=== PATIENT | female | born 1985 | race Caucasian/White ===

== ENCOUNTER 2021-07-05 12:04 | Emergency (ER) | payer OTHER, SELFPAY ==
[2021-07-05 13:18] VITALS: BP 118/63; PULSE 68; RESP 18; TEMP 36.4; O2SAT 99; BMI 28.0
[2021-07-05 13:22] VITALS: BP 118/63; PULSE 68; RESP 18; TEMP 36.4
--- NOTE | 2021-07-05 13:46 | HMH.EDUTC ---
[facility] [place] Clinical Impression: Exposure to COVID-19 virus Disposition: Home, Self-Care Condition on Discharge: Good Instructions: DI for COVID-19 (Suspected or Confirmed ), Preventing the Spread of Coronavirus Discharge Instructions Additional Instructions: Drink plenty of fluids. Take tylenol for pain or fever. Return if you begin to have difficulty breathing. Follow up with your regular doctor. GO TO THE ER FOR ANY WORSENING SYMPTOMS Quarantine until you know the results of your covid-19 test. If it is positive, the health department should call you and give you further instructions about your length of Quarantine and other things. Notify your school or workplace of your results and follow their instructions regarding return to work/school. Referrals: Surekha Gregg PA [Primary Care Provider] - Time of Disposition: 13:47 Medical Decision Making - Medical Records Medical records reviewed: No: I reviewed the patient's medical records. - Jose Juan Inquiry Pt receiving controlled substance: No Vital Signs: 07/05/21 13:18 07/05/21 13:22 Temperature 97.6 F 97.6 F Temperature Source Temporal Artery Scan Temporal Artery Scan Pulse Rate 68 Pulse Rate [Left] 68 Respiratory Rate 18 18 Blood Pressure 118/63 Blood Pressure [Right Arm] 118/63 Blood Pressure Mean [Right Arm] 81 02 Sat by Pulse Oximetry 99 Orders (Tests/Meds): ORDERS Category Date Time Status Covid-19 Nasal PCR ([facility]) Routine Lab 07/05/21 12:55 Received [facility] [place] HPI - General Stated complaint: covid expo Time Seen by Provider: 07/05/21 13:30 Mode of Arrival: Ambulatory Source of Information: Patient Limitations: No Limitations HEENT Symptoms (Recalled from RN notes): No Resp Symptoms (Recalled from RN notes): No Skin Symptoms (Recalled from RN notes): No MS Symptoms (Recalled from RN notes): No Functional Status (Recalled from RN notes): na - History of Present Illness Provider Complaint: She was exposed to covid-19 around 4 days ago. She denies any symptoms. - Related Data Allergies Allergy/AdvReac Type Severity Reaction Status Date / Time latex Allergy Verified 07/05/21 13:22 - Worker's Comp Is this a Worker's Comp case?: No [facility] History - Hepatitis A Screen Drug use history?: No High risk sexual behaviors?: No History of sexually transmitted infection?: No Currently employed?: No Childcare worker?: No Do you have indoor plumbing?: Yes Do you have electricity?: Yes Attestation statement:: This patient has been screened for Hepatitis A risk factors. I have reviewed the patient's past medical history: Yes ROS Obtained: Yes All systems reviewed & no additional complaints - Constitutional Constitutional: Reports system reviewed and no additional complaints, except as docu - Eyes Eyes: Reports system reviewed and no additional complaints, except as docu - ENT Ears, Nose, Mouth, and Throat: Reports system reviewed and no additional complaints, except as docu - Cardiovascular Cardiovascular: Reports system reviewed and no additional complaints, except as docu - Respiratory Respiratory: Reports system reviewed and no additional complaints, except as docu Physical Exam - General General appearance: alert, in no apparent distress - Head Head exam: atraumatic, normocephalic, normal inspection - Eye Eye exam: Present: normal appearance, PERRL, EOMI - ENT ENT exam: Present: normal exam, normal oropharynx, mucous membranes moist, TM's normal bilaterally, normal external ear exam - Neck Neck exam: Present: normal inspection, full ROM, trachea midline. Absent: meningismus, lymphadenopathy - Chest Chest inspection: Present: normal inspection, symmetric chest wall rise. Absent: tenderness - Respiratory Respiratory exam: Present: normal lung sounds bilaterally. Absent: respiratory distress - Cardiovascular Cardiovascular exam: Present: regular rate, normal rhythm
== END 2021-07-05 14:04 | disposition home or self-care (01) ==
PROVIDERS: Emergency Provider Nurse Practitioner Family; PCP Nurse Practitioner Family
DX: Z20.822 Contact with and (suspected) exposure to COVID-19 (principal)
CPT/HCPCS: 99202; C9803; G0463; U0003; U0005

== ENCOUNTER 2021-09-26 10:35 | Emergency (ER) | payer OTHER, SELFPAY ==
[2021-09-26] VITALS (7 sets, daily range): BP systolic 101–139; BP diastolic 67–90; PULSE 61–80; RESP 16–18; TEMP 36.9; O2SAT 96–99; BMI 30.7
[2021-09-26 11:01] LABS: Microscopic, Urine URINE MICROSCOPIC (MICROSCOPIC)
[2021-09-26 11:11] LABS: Chloride 103 mmol/L (98-107); Potassium 4.1 mmoL/L (3.5-5.1); Sodium 137 mmol/L (136-145)
[2021-09-26 11:13] LABS: Alanine Aminotransferase 39 U/L (12-78); Aspartate Amino Transferase 37 U/L (14-36); Blood Urea Nitrogen 7 mg/dl (7-17); Creatinine Clearance Estimated 180 mL/min (50-200); Estimated Glomerular Filt Rate 114 ml/min (>60); GFR (African American) 138 ML/MIN (>60)
--- NOTE | 2021-09-26 11:13 | HMH.EDABDPAI ---
ED Disposition Clinical Impression: Gastritis Qualifiers: Gastritis type: unspecified gastritis Chronicity: acute Gastritis bleeding: without bleeding Qualified Code(s): K29.00 - Acute gastritis without bleeding Disposition: Home, Self-Care Condition on Discharge: Good Instructions: DI for Gastritis Prescriptions: Ondansetron [Zofran 4mg ODT] 4 mg PO BIDP PRN #10 tab PRN Reason: Nausea Prescription Printed Referrals: Zoraida Goff APRN [Primary Care Provider] - - Critical Care Critical Care Time: No Attestation: On 09/26/21, the high probability of a clinically significant, sudden or life threatening deterioration of the following system(s) required my full and direct attention, intervention and personal management. The time I documented below is in addition to time spent performing reported procedures but includes the following listed in this critical care notation. Medical Decision Making - Medical Records Medical records reviewed: Yes: I reviewed the patient's medical records. - Jose Juan Inquiry Pt receiving controlled substance: No Vital Signs: 09/26/21 10:46 Temperature 98.4 F Temperature Source Oral Pulse Rate [Right Radial] 61 Respiratory Rate 18 Blood Pressure [Right Arm] 111/67 Blood Pressure Mean [Right Arm] 81 Blood Pressure Source [Right Arm] Automatic Cuff Blood Pressure Position [Right Arm] Sitting 02 Sat by Pulse Oximetry 96 Oxygen Delivery Method Room Air - Lab Data Lab Results 09/26/21 10:53: Urine Color Yellow, Urine Appearance Clear, Urine pH 8.0, Ur Specific Paul 1.015, Urine Protein 1+, Urine Glucose (UA) Negative, Urine Ketones Negative, Urine Blood 1+, Urine Nitrate Negative, Urine Bilirubin Negative, Urine Urobilinogen 1.0, Ur Leukocyte Esterase 1+ A, Urine RBC 3-5, Urine WBC 3-5, Ur Squamous Epith Cells 3-5 09/26/21 10:53: Urine HCG, Qual Negative 09/26/21 10:53: Sodium 137, Potassium 4.1, Chloride 103, Carbon Dioxide 25, Anion Gap 13.1, BUN 7, Creatinine 0.60, Estimated Creat Clear 180, Estimated GFR 114, Est GFR ( Amer) 138, Glucose 137 H, Calcium 9.5, Total Bilirubin 0.3, AST 37 H, ALT 39, Alkaline Phosphatase 121, Total Protein 7.5, Albumin 4.4, Globulin 3.1, Albumin/Globulin Ratio 1.4, Lipase 35 09/26/21 11:37: WBC 15.0 H, RBC 4.71, Hgb 14.1, Hct 40.5, MCV 86.1, MCH 29.9, MCHC 34.7, RDW 13.5, Plt Count 318, MPV 8.4, Neut % (Auto) 79.9, Lymph % (Auto) 10.3, [place] % (Auto) 7.6, Eos % (Auto) 1.1, Baso % (Auto) 1.1, Neut # (Auto) 12.0 H, Lymph # (Auto) 1.5, [place] # (Auto) 1.1 H, Eos # (Auto) 0.2, Baso # (Auto) 0.2, Total Counted 100, Neutrophils % (Manual) 70, Lymphocytes % (Manual) 21, Monocytes % (Manual) 8, Eosinophils % (Manual) 1, Platelet Estimate Normal, RBC Morphology Normal Result diagrams: 09/26/21 11:37 09/26/21 10:53 Orders (Tests/Meds): ED MEDICATIONS Discontinued Medications Generic Name Dose Route Start Last Admin Trade Name Freq PRN Reason Stop Dose Admin Diphenhydramine HCl 25 mg 09/26/21 10:53 09/26/21 11:08 Diphenhydramine 50mg/Ml Vial IV 09/26/21 10:54 25 mg ONCE ONE Administration Sodium Chloride 1,000 mls @ 999 mls/hr 09/26/21 11:00 09/26/21 11:08 Sod Chlor 0.9% 1000ml Bag IV 09/26/21 12:00 999 mls/hr .[id number] YANN Administration Ketorolac Tromethamine 30 mg 09/26/21 10:53 09/26/21 11:08 Ketorolac 30mg/Ml Vial IV 09/26/21 10:54 30 mg ONCE ONE Administration ORDERS Category Date Time Status Urine Culture Stat Micro 09/26/21 10:53 Received - Reevaluation(s) Time: 13:00 Reevaluation #1: On reevaluation, the patient is feeling better. Repeat abdominal exam is benign. There is no evidence of acute abdomen. Patient is tolerating oral intake without any significant difficulty. Patient needs repeat abdominal examination within 48 hours. She was given strict return precautions. Verbalized understanding. Medical Decision Narrative: 36-year-old female presented to the emergency depa
[2021-09-26 11:14] LABS: Albumin Level 4.4 g/dl (3.5-5.0); Albumin/Globulin Ratio 1.4 (1.1-1.8); Alkaline Phosphatase 121 U/L (38-126); Anion Gap 13.1 mEq/L (5-15); Bilirubin,Total 0.3 mg/dl (0.2-1.3); Calcium 9.5 mg/dl (8.4-10.2); Carbon Dioxide 25 mmol/L (22.0-30.0); Globulin 3.1 g/dL (1.3-3.2); Glucose 137 mg/dl (74-100); Lipase 35 U/L (23-300); Total Protein,Serum 7.5 g/dl (6.3-8.2)
[2021-09-26 11:44] LABS: Appearance,Urine CLEAR (Clear); Bilirubin,Urine Negative (Negative); Blood, Urine 1+ (Negative); Color,Urine YELLOW (Yellow); Glucose,Urine (UA) Negative (Negative); Ketones,Urine Negative (Negative); Leukocyte Esterase,Urine 1+ (Negative); Nitrate,Urine Negative (Negative); Protein,Urine 1+ (Negative); Specific Gravity, Urine 1.015 (1.005-1.030)
[2021-09-26 11:53] LABS: Urine Pregnancy, HCG Qual. Negative (Negative)
[2021-09-26 12:04] LABS: Basophils # 0.2 K/mm3 (0-0.2); Basophils % 1.1 % (0.1-2.0); Eosinophils # 0.2 K/mm3 (0.0-0.4); Eosinophils % 1.1 % (0.1-12.0); Hematocrit 40.5 % (37.0-47.0); Hemoglobin 14.1 g/dL (12.2-16.2); Lymphocytes # 1.5 K/mm3 (0.7-4.5); Lymphocytes % 10.3 % (10-50); Mean Corpuscular HGB Conc 34.7 g/dL (31.8-35.4); Mean Corpuscular Hemoglobin 29.9 pg (27.0-31.2); Mean Corpuscular Volume 86.1 fl (81-99); Mean Platelet Volume 8.4 fl (7.4-10.4); Monocytes # 1.1 K/mm3 (0.1-1.0); Monocytes % 7.6 % (1.7-9.3); Neutrophils % 79.9 % (37.0-80.0); Platelet Count 318 K/mm3 (142-424); Red Blood Count 4.71 M/mm3 (4.20-5.40); Red Cell Distribution Width 13.5 % (11.5-17.5)
[2021-09-26 12:07] LABS: MANUAL DIFFERENTIAL MANUAL DIFFERENTIAL (MANUAL DIFF)
[2021-09-26 12:28] LABS: Eosinophils % 1 % (0-3); Lymphocytes % 21 % (10-50); Monocytes % 8 % (2-9); Neutrophils % 70 % (42-76); Platelet Estimate Normal; RBC Morphology Normal; Total Cells Counted 100
== END 2021-09-26 13:57 | disposition home or self-care (01) ==
PROVIDERS: Emergency Provider Emergency Medicine; PCP Nurse Practitioner Family
DX: K29.00 Acute gastritis without bleeding (principal)
CPT/HCPCS: 80053; 81001; 81025; 83690; 85007; 85025; 87086; 87088; 87186; 96365; 96375; 99283

== ENCOUNTER → 2021-10-15 12:54 | Outpatient (CLI) | payer OTHER, SELFPAY | PROVIDERS: Visit Provider Nurse Practitioner | DX: U07.1 COVID-19 (principal) | CPT/HCPCS: C9803; U0003; U0005 ==

== ENCOUNTER 2024-10-02 15:32 | Emergency (ER) | payer OTHER, SELFPAY ==
[2024-10-02 15:34] VITALS: BP 113/76; PULSE 83; RESP 20; TEMP 36.6; O2SAT 96; BMI 29.0
--- NOTE | 2024-10-02 15:50 | PC.NURSE ---
DR GARNICA AT BEDSIDE
--- NOTE | 2024-10-02 15:55 | XR_ITS ---
PROCEDURE INFORMATION: Exam: XR Chest Exam date and time: 10/02/2024 3:58 PM Age: 39 years old Clinical indication: Cough and dyspnea and fever and wheezing; Additional info: L posterior wheezes, productive cough TECHNIQUE: Imaging protocol: Radiologic exam of the chest. Views: 1 view. COMPARISON: No relevant prior studies available. FINDINGS: Lungs: No evidence of acute pulmonary disease or infiltrates Pleural spaces: No large effusion or pneumothorax. Heart/Mediastinum: No evidence of mediastinal widening or cardiac silhouette enlargement; the mediastinum and heart appear within normal limits for contour and size. Bones/joints: No evidence of acute osseous abnormalities within the visualized portions of the thoracic spine and ribs. Osseous structures appear appropriate for patient age. IMPRESSION: No dense parenchymal consolidation, pleural effusion, or pneumothorax.
[2024-10-02] MEDS: IPRATROPIUM/ALBUTEROL 3 ML NEB 9 ML IH (16:04)
[2024-10-02] MEDS: DOXYCYCLINE HYCL 100 MG TABLET PO (16:07)
[2024-10-02] MEDS: predniSONE 20MG TAB 40 MG PO (16:08)
--- NOTE | 2024-10-02 16:13 | ED_ITS ---
Discharge Plan Disposition Patient Disposition: Home, Self-Care Prescriptions Prescriptions: New prednisone 20 mg tablet 40 mg PO DAILY 5 Days Qty: 10 0RF doxycycline monohydrate 100 mg capsule 100 mg PO BID 5 Days Qty: 10 0RF No Action ondansetron 4 MG tablet,disintegrating 4 mg PO BIDP PRN (Reason: Nausea) Qty: 10 0RF Referrals Follow up/Referrals: Zoraida Goff APRN [Primary Care Provider] - See instructions Activity Restrictions/Add. Instructions Additional Instructions/Restrictions: Call your family doctor to establish care for this visit to the emergency department and schedule follow-up within 48 hours to ensure improvement. If you have any worsening of your condition or any other concerning signs or symptoms, return to the emergency department or your primary care doctor for further evaluation. Prednisone in the morning after waking up, doxycycline twice daily for 5 days. Clinical Impressions Clinical Impression: Bronchitis, Acute exacerbation of chronic obstructive pulmonary disease Print Language Print Language: Icelandic Discharge ED Provider: Yuniel Mckeon General Adult HPI General Chief complaint: Upper Respiratory Infection Stated complaint: Body aches,cold & hot,nausea,runny nose Time Seen by Provider: 10/02/24 15:44 Mode of Arrival: Ambulatory Source of Information: Patient Limitations: No Limitations Description of Symptoms (Recalled from ER Triage Doc. by RN): pt is here for being sick 3 days with cough, congestion, chills History of Present Illness HPI narrative: Please note that above description of symptoms, in this electronic medical record under categorization of recalled from ER triage doctor by RN are reflective of an initial nursing assessment, however, is not reflective of my full history and physical exam that was personally taken and clarified. Consequentially, this preceding description of symptoms, which may include the patient's categorized chief complaint in the EMR, do not reflect my personal cl inical impression, and the ultimate description of history of present illness and patient stated complaints should be deferred to this section of the note. Unless stated otherwise or congruent with this section of the note, additional signs, symptoms, or incongruence should be interpreted as inaccurate with my clinical impression. Related Data Previous Rx's ?Medication ?Instructions ?Recorded ondansetron 4 mg disintegrating 4 mg PO BIDP PRN Nausea #10 tabs 09/26/21 tablet doxycycline monohydrate 100 mg 100 mg PO BID 5 days #10 caps 10/02/24 capsule prednisone 20 mg tablet 40 mg (2 x 20 mg) PO DAILY 5 days 10/02/24 #10 tabs Allergies Allergy/AdvReac Type Severity Reaction Status Date / Time latex Allergy Verified 07/05/21 13:22 [facility] Disclaimer: The information contained in this section may have been updated after the patient was seen, as this information can be updated by other users. Social History Smoking Status: Current every day smoker alcohol intake: current current occupational status: other Travel in the last 8 weeks: None Other Medical History Have you received the Flu Vaccine for this season: No Have you received the Pneumonia Vaccine: No ROS Obtained: Yes All systems reviewed & no additional complaints except as documented Physical Exam General General appearance: alert Head Head exam: atraumatic and normocephalic Eye Eye exam: Present normal appearance, PERRL and EOMI Neck Neck exam: Present normal inspection, full ROM and trachea midline Respiratory Respiratory exam: Present wheezes (Posteriorly on inspiration on left lung barrios. Intermittently coughing); Absent respiratory distress, stridor, accessory muscle use or prolonged expiratory phase Cardiovascular Cardiovascular exam: Present other (Pulses equal symmetric in upper and lower extremities) Abdominal Exam Abdominal exam: Present soft; Absent distention, tenderness or pulsatile mass Extremities Exam Extremities exam: Absent edema Neurological Exam Neurological exam: Present alert, oriented X3 and CN II-XII intact; Absent motor sensory deficit Skin Skin exam: Present warm and dry; Absent diaphoresis or erythema Medical Decision Making Medical Records Medical records reviewed: Yes I reviewed the patient's medical records. Screening: Per USPSTF and CDC recommendations, given the prevalence of disease in our region, it is our hospital?s policy to screen for HIV and viral Hepatitis for all patients aged 18 and over and those with ongoing risk factors. Jose Juan Inquiry Pt receiving controlled substance: No Jose Juan was queried for this patient: No Vital Signs: 10/02/24 15:34 Temperature 98 F Temperature Source Oral Pulse Rate [Right Radial] 83 Respiratory Rate 20 Blood Pressure [Right Arm] 113/76 Blood Pressure Mean [Right Arm] 88 02 Sat by Pulse Oximetry 96 Oxygen Delivery Method Room Air Orders (Tests/Meds): ED MEDICATIONS Discontinued Medications Generic Name Dose Route Start Last Admin Trade Name Freq PRN Reason Stop Dose Admin Albuterol/Ipratropium 9 ml 10/02/24 15:55 10/02/24 16:04 Ipratropium/Albuterol 3 Ml Neb IH 10/02/24 15:56 9 ml ONCE ONE Administration Doxycycline Hyclate 100 mg 10/02/24 15:55 10/02/24 16:07 Doxycycline Hycl 100 Mg Tablet PO 10/02/24 15:56 100 mg ONCE ONE Administration Prednisone 40 mg 10/02/24 15:55 10/02/24 16:08 Prednisone 20mg Tab PO 10/02/24 15:56 40 mg ONCE ONE Administration ORDERS Category Date Time Status CXR --portable [XR chest portable] Stat Exams 10/02/24 15:55 Completed Medical Decision Narrative: This is a 39-year-old female history of current everyday smoking never been diagnosed with COPD presenting with multiple complaints and viral syndrome. Patient states that she started having viral syndrome 4 days prior to this. Dry cough, body aches, etc. Patient states that she has not been getting any better. Still having bodyaches, no cough is productive intermittently of dark sputum. No blood. She has been having chills, no objective fevers up and measured. No vomiting, any other concerns. Came in for further evaluation. She has been taking Tylenol with mild effect. History was obtained via con versation with patient. On arrival, patient hemodynamically stable, alert, oriented x4, appropriate, GCS 15, moving all extremities spontaneously, pupils equal and reactive to light. Full physical exam performed and significant for fatigued appearing female in no acute distress. Healthy overall. Intermittently coughing. She has diffuse and expiratory wheezes, but isolated inspiratory wheezes left posterior lung field. Cardiac exam with no murmurs gallops or rubs. Nontachycardic, normotensive. Differential includes URI, bronchitis, pneumonia, pneumothorax, among others. Patient placed on continuous cardiac monitoring and continuous pulse ox with initial blood pressure 113/76, heart rate 3, saturation 96% on room air. On independent interpretation of chest x-ray, patient does have bronchial inflammation and concern for viral pneumonia versus bronchitis. See radiology read for further interpretation. On reevaluation, patient states she is feeling much better after DuoNeb. I feel this is consistent with viral pneumonia versus bronchitis in the setting of COPD exacerbation. To be prescribed prednisone as well as doxycycline for home-going. Patient feels comfortable with this. Because patient at baseline without signs or symptoms of clinical decompensation, deemed appropriate for discharge. Results were relayed to patient who voiced understanding and were agreeable to outpatient management and follow up. I discussed my clinical impression with patient and answered all questions. At this time, the evidence for any other entities in the differential is insufficient to warrant any further testing or ED observation. This was explained as well. Advisory was given that persistent or worsening symptoms require further evaluation. I confirmed the understanding of this discussion. [employer] disclaimer Much of this encounter note is an electronic screen printing machine loader unloader spoken language to printed text. Electronic screen printing machine loader unloader of the spoken language may permit error s. Although I have reviewed the note, some errors may still exist. Critical Care Critical Care Time Critical Care Time: No
[2024-10-02 16:50] VITALS: BP 117/80; PULSE 81; RESP 16; TEMP 36.6; O2SAT 99
== END 2024-10-02 16:51 | disposition home or self-care (01) ==
PROVIDERS: Emergency Provider Emergency Medicine; PCP Nurse Practitioner Family
DX: J44.1 Chronic obstructive pulmonary disease with (acute) exacerbation (principal); J40 Bronchitis, not specified as acute or chronic; R05.9 Cough, unspecified; R09.81 Nasal congestion; R68.83 Chills (without fever); R11.0 Nausea; M79.10 Myalgia, unspecified site
CPT/HCPCS: 71045; 99283; J7620